=== PATIENT | female | born 1975 | race Hispanic/Latino ===

== ENCOUNTER 2017-03-24 16:58 | Emergency (ER) | payer MEDICAID ==
[2017-03-24 18:00] LABS: Eosinophils % (Auto) 3.2 % (0.0-4.3); Hematocrit 38.5 % (30.3-42.9); Hemoglobin 12.8 gm/dl (10.1-14.3); Mean Corpuscular HGB Conc 33 % (30-34); Mean Corpuscular Hemoglobin 30 pg (28-32); Mean Corpuscular Volume 90 fl (79-97); Platelet Count 247 K/mm3 (140-440); Red Blood Count 4.26 M/mm3 (3.65-5.03); Red Cell Distribution Width 14.9 % (13.2-15.2); White Blood Count 6.6 K/mm3 (4.5-11.0)
[2017-03-24 18:31] LABS: Anion Gap 19 mmol/L; Blood Urea Nitrogen 15 mg/dL (7-17); Calcium 9.5 mg/dL (8.4-10.2); Carbon Dioxide 24 mmol/L (22-30); Chloride 99.8 mmol/L (98-107); Glucose 106 mg/dL (65-100); Potassium 4.1 mmol/L (3.6-5.0); Sodium 139 mmol/L (137-145)
[2017-03-24 22:02] VITALS: BP 135/60
[2017-03-24 22:13] LABS: Urine Drugs of Abuse Note Disclamer
--- NOTE | 2017-03-24 22:17 | Emergency Department Report ---
ED General Adult HPI - General Chief complaint: Chest Pain Stated complaint: WITHDRAWAL Time Seen by Provider: 03/24/17 21:43 Source: patient Mode of arrival: Ambulatory Limitations: No Limitations - History of Present Illness Initial comments: 42-year-old female presents to the emergency department complaining of chest pain and headache beginning this morning. Patient describes sharp pain in center of her chest radiating into her neck and to the top of her head. Pain has been constant since onset. Patient states that she does not she is withdrawing from Klonopin and Ativan. She last of these medications 3 days ago. Patient also reports memory loss and auditory hallucinations. She was recently at [facility] after an apparent suicide attempt. Patient is currently at the [facility]. There are no other complaints. -: Gradual, This morning Location: head, chest Severity scale (0 -10): 7 Quality: sharp Consistency: constant Improves with: none Worsens with: none Associated Symptoms: denies other symptoms Treatments Prior to Arrival: none - Related Data Allergies Allergy/AdvReac Type Severity Reaction Status Date / Time No Known Allergies Allergy Unverified 03/24/17 17:20 ED Review of Systems ROS: Stated complaint: WITHDRAWAL Other details as noted in HPI Comment: All other systems reviewed and negative Cardiovascular: chest pain Neurological: headache Psychiatric: auditory hallucinations ED Past Medical Hx - Past Medical History Previous Medical History?: Yes Hx Psychiatric Treatment: Yes (anxiety) Additional medical history: gastroporesis. recent abnormal head ct - Surgical History Past Surgical History?: Yes Additional Surgical History: colonresection. tubal ligation. hysterectomy. abnormal heart cath - Family History Family history: no significant - Social History Smoking Status: Current Every Day Smoker Substance Use Type: Alcohol ED Physical Exam - General Limitations: No Limitations General appearance: alert, in no apparent distress - Head Head exam: Present: atraumatic, normocephalic - Eye Eye exam: Present: normal appearance, PERRL, EOMI - ENT ENT exam: Present: normal exam, normal orophraynx, mucous membranes moist - Neck Neck exam: Present: normal inspection, full ROM. Absent: tenderness - Respiratory Respiratory exam: Present: normal lung sounds bilaterally. Absent: respiratory distress, chest wall tenderness - Cardiovascular Cardiovascular Exam: Present: regular rate, normal rhythm, normal heart sounds - GI/Abdominal GI/Abdominal exam: Present: soft, normal bowel sounds. Absent: distended, tenderness - Extremities Exam Extremities exam: Present: normal inspection, full ROM. Absent: tenderness - Back Exam Back exam: Present: normal inspection, full ROM. Absent: tenderness - Neurological Exam Neurological exam: Present: alert, oriented X3. Absent: motor sensory deficit - Psychiatric Psychiatric exam: Present: normal affect, normal mood. Absent: suicidal ideation - Skin Skin exam: Present: warm, dry, other (multiple linear wounds to bilateral forearms and the left ventral wrist. Wounds have been sutured and the sutures are intact. There is no surrounding erythema. There is no drainage.) ED Course Vital Signs 03/24/17 03/24/17 17:20 22:01 Temperature 98.3 F 97.9 F Pulse Rate 74 80 Respiratory 18 18 Rate Blood Pressure 141/90 Blood Pressure 135/60 [Right] O2 Sat by Pulse 100 97 Oximetry ED Medical Decision Making - Lab Data Result diagrams: 03/24/17 17:42 03/24/17 17:42 - EKG Data -: EKG Interpreted by Me EKG shows normal: sinus rhythm, axis, intervals, QRS complexes, ST-T waves Rate: normal - EKG Data When compared to previous EKG there are: previous EKG unavailable Interpretation: normal EKG - Medical Decision Making Lab results reviewed and discussed with the patient. Patient has had a normal ECG and 2 negative troponins. Patient is medically cleared and is currently awaiting mental health evaluation. [id number]-patient has been evaluated by mental health and cleared for discharge back to the [facility]. Patient will be discharged at this time. - Differential Diagnosis benzodiazepine withdrawal, depression with psychosis Critical care attestation.: If time is entered above; I have spent that time in minutes in the direct care of this critically ill patient, excluding procedure time. ED Disposition Clinical Impression: Benzodiazepine withdrawal without complication Disposition: DC/TX PSY HOSP/PSY UNIT Is pt being admited?: No Condition: Stable Instructions: Benzodiazepine Abuse (ED) Referrals: PRIMARY CARE, [Primary Care Provider] - 3-5 Days Time of Disposition: 22:46
[2017-03-24 22:25] LABS: Bacteria,Urine 4+ /HPF (Negative); Bilirubin,Urine NEG (Negative); Blood,Urine NEG (Negative); Ketones,Urine NEG (Negative); Leukocyte Esterase,Urine TR (Negative); Mucus,Urine 3+ /HPF; Nitrite,Urine NEG (Negative); Protein,Urine <15 mg/dL mg/dL (Negative); Urobilinogen,Urine < 2.0 mg/dL (<2.0)
== END 2017-03-24 23:26 ==
LOC: ED 16:58
DX: F15.93 Other stimulant use, unspecified with withdrawal (principal)
CPT/HCPCS: 36415; 80048; 80307; 81001; 84484; 85025; 93005; 93010; 99284; G0480; 80320